=== PATIENT | male | born 1945 | race Caucasian/White ===

== ENCOUNTER 2016-09-27 20:06 | Inpatient (IN) | payer OTHER, MEDICARE ==
[~2016-09-27] VITALS: Ht 177.8 cm; Wt 79.7 kg
[2016-09-27 20:08] VITALS: BP 87/48; PULSE 77; RESP 16; TEMP 97.7; O2SAT 98
[2016-09-27 20:28] VITALS: BP 85/48; PULSE 68; RESP 20; TEMP 97.9
[2016-09-27 20:30] VITALS: BP 87/48; PULSE 77; RESP 16; TEMP 97.7; O2SAT 98
[2016-09-27] MEDS ORDERED: FISHCAP4 PO (20:40)
[2016-09-27] MEDS ORDERED: CALC500T35 (20:40)
[2016-09-27] MEDS ORDERED: ASCOPOW5 (20:40)
[2016-09-27] MEDS ORDERED: MULT1CHW70 (20:40)
[2016-09-27] MEDS ORDERED: PRAV40TA2 PO (20:40)
[2016-09-27] MEDS ORDERED: VITA400C28 (20:40)
[2016-09-27] MEDS ORDERED: ATEN100T PO (20:40)
[2016-09-27] MEDS ORDERED: M2 M100C (20:40)
[2016-09-27] MEDS ORDERED: ASPI81CH CHEW (20:40)
[2016-09-27] MEDS ORDERED: FERR325T PO (20:40)
[2016-09-27] MEDS ORDERED: VITACAP7 PO (20:40)
[2016-09-27] MEDS ORDERED: LEVO150T7 PO (20:40)
[2016-09-27] MEDS ORDERED: HYDR10TA23 PO (20:40)
[2016-09-27] MEDS ORDERED: SODIUM CHLOR 0.9% 1000 ML INJ 1,000 ML IV ONE (21:01)
--- NOTE | 2016-09-27 21:06 | PD ---
HPI Chief Complaint: Syncope/Near-Syncope Time Seen by Provider: 21:05 Travel History International Travel<30 days: No Contact w/Intl Traveler<30days: No Traveled to known affect area: No History of Present Illness HPI Patient complaining of dizziness causing the fall on his buttocks 3 episodes that began last night. Patient states he began having loose stools yesterday as well as some today and becoming dizzy after standing for long periods of time. Patient denies any loss of consciousness, head injury, or other change in bowel or bladder. Patient denies any chest pain, shortness of breath, abdominal pain, numbness or tingling anywhere, or headaches. Patient does report he had associated cold sweats with this but denies any known fever. Patient reports he's had dark stools over the past year which has not changed. Patient reports occasionally that when wiping it is some bright red blood on the toilet paper, but associated this with possible hemorrhoids. PFSH Past Medical History AAA: Yes Atrial Fibrillation: Yes Cardiovascular Problems: Yes (AAA) Hypertension: Yes Past Surgical History Abdominal Aneurysm Repair: Yes Cholecystectomy: Yes Tonsillectomy: Yes Other Surgery: Yes (INTESTINAL REPAIR, GROIN ANEURSYM ) Social History Alcohol Use: No Tobacco Use: No Substance Use: No Allergies-Medications (Allergen,Severity, Reaction): Coded Allergies: Codeine (Verified Allergy, Unknown, 09/27/16) Spiriva (Verified Allergy, Unknown, 09/27/16) Reported Meds & Prescriptions Reported Meds & Active Scripts Active Reported Ascorbic Acid (Ascorbic Acid (Bulk)) 1 Pow Pow Calcium (Oyster Shell) 500 Mg Tab 500 Magnesium 100 Mg Cap Vitamin D (Cholecalciferol) 400 Unit Cap B Complex (B-Complex Vitamins) 1 Cap 1 Cap PO DAILY Fish Oil + D3 (Fish Oil-Cholecalciferol) 1,200-1,000 Mg-Unit Cap 1 Cap PO DAILY Multivitamin Adult (Multiple Vitamins W/ Minerals) 1 Chw Chw Hydralazine (Hydralazine HCl) 10 Mg Tab 12.5 Mg PO DAILY Take with a meal Pravastatin 40 Mg Tab 40 Mg PO DAILY Levothyroxine (Levothyroxine Sodium) 150 Mcg Tab 150 Mcg PO DAILY Atenolol 100 Mg Tab 100 Mg PO BID Ferrous Sulfate 325 Mg Tab 500 Mg PO BID Aspirin 81 Mg Chew 81 Mg CHEW DAILY Review of Systems Except as stated in HPI: all other systems reviewed are Neg Physical Exam Narrative GENERAL: Well-developed, well nourished, in no acute distress, and non-ill appearing. SKIN: Warm and dry. HEAD: Atraumatic. Normocephalic. EYES: Pupils equal and round. EOMI. No scleral icterus. No injection or drainage. ENT: No nasal bleeding or discharge. Mucous membranes pink and moist. NECK: Trachea midline. No JVD. Supple. No nuclear rigidity. CARDIOVASCULAR: Regular rate and rhythm. No murmur appreciated. RESPIRATORY: No accessory muscle use. No respiratory distress. Clear to auscultation. Breath sounds equal bilaterally. GASTROINTESTINAL: Abdomen soft, non-tender, nondistended. Hepatic and splenic margins not palpable. Normal bowel sounds 4. No pulsatile mass. MUSCULOSKELETAL: No obvious deformities. No clubbing. No cyanosis. No edema. Full range of motion. NEUROLOGICAL: Awake and alert. No obvious cranial nerve deficits. Motor grossly within normal limits. Normal speech. PSYCHIATRIC: Appropriate mood and affect; insight and judgment normal. Data Data Last Documented VS Vital Signs Date Time Temp Pulse Resp B/P Pulse Ox O2 Delivery O2 Flow Rate FiO2 09/27/16 22:43 70 14 93/50 100 Room Air 09/27/16 20:30 97.7 Orders Electrocardiogram (09/27/16 21:01) Complete Blood Count With Diff (09/27/16 21:01) Comprehensive Metabolic Panel (09/27/16 21:01) Magnesium (Mg) (09/27/16 21:01) Ckmb (Isoenzyme) Profile (09/27/16 21:01) Troponin I (09/27/16 21:01) Act Partial Throm Time (Ptt) (09/27/16 21:01) Prothrombin Time / Inr (Pt) (09/27/16 21:01) Urinalysis - C+S If Indicated (09/27/16 21:01) Chest, Single Ap (09/27/16 21:01) Ecg Monitoring (09/27/16 21:01) Iv Access Insert/Monitor (09/27/16 21:01) Oximetry (09/27/16 21:01) Sodium Chloride 0.9% Flush (Ns Flush) (09/27/16 21:15) Sodium Chlor 0.9% 1000 Ml Inj (Ns 1000 M (09/27/16 21:01) Orthostatic Vital Signs (09/27/16 21:01) Influenzae A/B Antigen (09/27/16 21:01) Type And Screen (09/27/16 21:58) Red Blood Cells (Rbc) (09/27/16 21:58) Pantoprazole Inj (Protonix Inj) (09/27/16 22:30) Pantoprazole Inj (Protonix Inj) (09/27/16 22:30) Admit Order (Ed Use Only) (09/27/16 22:44) Labs Laboratory Tests Test 09/27/16 09/27/16 09/27/16 21:15 21:45 22:04 White Blood Count 10.1 TH/MM3 Red Blood Count 1.78 MIL/MM3 Hemoglobin 5.7 GM/DL Hematocrit 16.9 % Mean Corpuscular Volume 94.9 FL Mean Corpuscular Hemoglobin 32.2 PG Mean Corpuscular Hemoglobin 34.0 % Concent Red Cell Distribution Width 13.5 % Platelet Count 117 TH/MM3 Mean Platelet Volume 8.4 FL Neutrophils (%) (Auto) 77.4 % Lymphocytes (%) (Auto) 13.8 % Monocytes (%) (Auto) 8.3 % Eosinophils (%) (Auto) 0.2 % Basophils (%) (Auto) 0.3 % Neutrophils # (Auto) 7.8 TH/MM3 Lymphocytes # (Auto) 1.4 TH/MM3 Monocytes # (Auto) 0.8 TH/MM3 Eosinophils # (Auto) 0.0 TH/MM3 Basophils # (Auto) 0.0 TH/MM3 CBC Comment DIFF FINAL Differential Comment Prothrombin Time 11.0 SEC Prothromb Time International 1.0 RATIO Ratio Activated Partial 19.5 SEC Thromboplast Time Sodium Level 137 MEQ/L Potassium Level 4.2 MEQ/L Chloride Level 103 MEQ/L Carbon Dioxide Level 23.1 MEQ/L Anion Gap 11 MEQ/L Blood Urea Nitrogen 123 MG/DL Creatinine 1.82 MG/DL Estimat Glomerular Filtration 37 ML/MIN Rate Random Glucose 154 MG/DL Calcium Level 8.8 MG/DL Magnesium Level 2.0 MG/DL Total Bilirubin 0.2 MG/DL Aspartate Amino Transf 14 U/L (AST/SGOT) Alanine Aminotransferase 17 U/L (ALT/SGPT) Alkaline Phosphatase 29 U/L Total Creatine Kinase 100 U/L Troponin I LESS THAN 0.02 NG/ML Total Protein 5.1 GM/DL Albumin 2.8 GM/DL Urine Color YELLOW Urine Turbidity CLEAR Urine pH 5.0 Urine Specific [place] 1.017 Urine Protein NEG mg/dL Urine Glucose (UA) NEG mg/dL Urine Ketones NEG mg/dL Urine Occult Blood NEG Urine Nitrite NEG Urine Bilirubin NEG Urine Urobilinogen LESS THAN 2.0 MG/DL Urine Leukocyte Esterase NEG Urine WBC 1 /hpf Microscopic Urinalysis Comment CULT NOT INDICATED Blood Type B POSITIVE Antibody Screen NEGATIVE Crossmatch Leukocyte-Reduced Red Blood Cells Blood Bank Comment MDM Medical Decision Making Medical Screen Exam Complete: Yes Emergency Medical Condition: Yes Differential Diagnosis Arrhythmia, electrolyte abnormality, acute coronary syndrome, dehydration, influenza, other Narrative Course Patient seen and examined. Initial laboratory radiological studies were obtained and reviewed. Discussed patient with Dr. George, who saw and evaluated the patient and is in agreement with plan of care and disposition. Discussed all findings and plan of care with patient and his , who is agreeable for admission. Procedures Procedure Narrative Verbal consent was obtained. Digital rectal exam was performed. Stool specimen applied and test interpreted between 1 and 3 minutes of application and the result was positive. Internal Controls: Both positive and negative controls were validated. behavioral consultant was present during this exam. Physician Communication Physician Communication [id number] Olsen, who is agreeable to admit the patient. Diagnosis Primary Impression: GI bleed Qualified Code: K92.2 - Gastrointestinal hemorrhage, unspecified gastrointestinal hemorrhage type Additional Impressions: Severe anemia Acute renal insufficiency Abdoulaye Nieto Sep 27, 2016 21:06
[2016-09-27 21:14] VITALS: O2SAT 97
[2016-09-27] MEDS ORDERED: SODIUM CHLORIDE 0.9% FLUSH 5 ML FLUSH IVF PRN (21:15)
[2016-09-27 21:24] VITALS: BP_SYST 84; BP_SYST 86; BP_SYST 97; BP_DIAS 46; BP_DIAS 48; BP_DIAS 50; RESP 18; RESP 20
[2016-09-27 21:49] LABS: AUTOMATED NEUTROPHIL # 7.8 TH/MM3 (1.8-7.7); BASOPHIL % 0.3 % (0.0-2.0); EOSINOPHIL % 0.2 % (0.0-4.0); LYMPH % 13.8 % (9.0-44.0); LYMPHOCYTE # 1.4 TH/MM3 (1.0-4.8); MEAN CELL VOLUME 94.9 FL (80.0-100.0); MEAN CORPUSCULAR HEMOGLOBIN 32.2 PG (27.0-34.0); MONO % 8.3 % (0.0-8.0); NEUT % 77.4 % (16.0-70.0); PLATELET COUNT 117 TH/MM3 (150-450); RED BLOOD COUNT 1.78 MIL/MM3 (4.50-5.90); RED CELL DISTRIBUTION WIDTH 13.5 % (11.6-17.2); WHITE BLOOD COUNT 10.1 TH/MM3 (4.0-11.0)
[2016-09-27 21:50] LABS: HEMO FLAGS DIFF FINAL
--- NOTE | 2016-09-27 21:55 | RADRPT ---
EXAM DATE/TIME: 09/27/2016 21:20 [facility] COMPARISON: No previous studies available for comparison. INDICATIONS : Syncope MEDICAL HISTORY : None. SURGICAL HISTORY : None. ENCOUNTER: Initial ACUITY: 1 day PAIN SCORE: 0/10 LOCATION: Bilateral chest FINDINGS: A single view of the chest demonstrates the lungs to be symmetrically aerated without evidence of mas s, infiltrate or effusion. The cardiomediastinal contours are unremarkable. Osseous structures are intact. CONCLUSION: 1. No acute findings. Mildly tortuous aorta. Bhavin Castaneda MD on September 27, 2016 at 21:53 Board Certified Radiologist. This report was verified electronically.
[2016-09-27 21:58] LABS: ANION GAP 11 MEQ/L (5-15); AST (GOT) 14 U/L (15-37); BICARBONATE 23.1 MEQ/L (21.0-32.0); BLOOD UREA NITROGEN 123 MG/DL (7-18); CHLORIDE 103 MEQ/L (98-107); GLOMERULAR FILTRATION RATE 37 ML/MIN (>89); HEMATOCRIT 16.9 % (39.0-51.0); POTASSIUM 4.2 MEQ/L (3.5-5.1); SODIUM (NA) 137 MEQ/L (136-145)
[2016-09-27 21:59] LABS: APTT (PATIENT) 19.5 SEC (24.3-30.1)
[2016-09-27 22:03] LABS: ALKALINE PHOSPHATASE 29 U/L (45-117); ALT (GPT) 17 U/L (12-78); TOTAL BILIRUBIN ADULT 0.2 MG/DL (0.2-1.0)
[2016-09-27 22:04] LABS: CREATINE KINASE 100 U/L (39-308)
[2016-09-27 22:20] LABS: BLOOD, URINE NEG (NEG); GLUCOSE,URINE NEG (NEG); KETONE, URINE NEG (NEG); NITRITE,URINE NEG (NEG); URINE COLOR YELLOW (YELLW/STRAW)
[2016-09-27 22:25] LABS: COMMENT (UR) CULT NOT INDICATED; CULTURE IF INDICATED CULT NOT INDICATED
--- NOTE | 2016-09-27 22:26 | PD ---
Physical Exam Narrative General: The patient is a well-developed well-nourished male, slightly pale appearing, in no acute distress. Head and Neck exam: Head is normocephalic atraumatic. Eyes: Pupils are equal round and reactive to light. Nose: Midline septum with pink mucous membranes Mouth: Dentition unremarkable. Moist mucus membranes. Posterior oropharynx is not erythematous. No tonsillar hypertrophy. Uvula midline. Airway patent. Neck: No palpable lymphadenopathy. No nuchal rigidity. No thyromegaly. Cardiovascular: Regular rate and rhythm without murmurs, gallops, or rubs. No pulse deficit to the extremities and simultaneous auscultation and palpation of his radial artery. Lungs: Clear to auscultation bilaterally. No wheezes, rhonchi, or rales. Abdomen: Soft, without tenderness to palpation in all 4 quadrants of the abdomen. No guarding, rebound, or rigidity. Normal bowel sounds are audible. No tenderness on palpation of McBurney's point. Extremities: No clubbing, cyanosis, or edema. 2+ pulses in all 4 extremities. Neurologic Exam: Grossly nonfocal. Skin Exam: No rash noted. Intact skin that is warm and dry. Data Data Last Documented VS Vital Signs Date Time Temp Pulse Resp B/P Pulse Ox O2 Delivery O2 Flow Rate FiO2 09/27/16 22:43 70 14 93/50 100 Room Air 09/27/16 20:30 97.7 Orders Electrocardiogram (09/27/16 21:01) Complete Blood Count With Diff (09/27/16 21:01) Comprehensive Metabolic Panel (09/27/16 21:01) Magnesium (Mg) (09/27/16 21:01) Ckmb (Isoenzyme) Profile (09/27/16 21:01) Troponin I (09/27/16 21:01) Act Partial Throm Time (Ptt) (09/27/16 21:01) Prothrombin Time / Inr (Pt) (09/27/16 21:01) Urinalysis - C+S If Indicated (09/27/16 21:01) Chest, Single Ap (09/27/16 21:01) Ecg Monitoring (09/27/16 21:01) Iv Access Insert/Monitor (09/27/16 21:01) Oximetry (09/27/16 21:01) Sodium Chloride 0.9% Flush (Ns Flush) (09/27/16 21:15) Sodium Chlor 0.9% 1000 Ml Inj (Ns 1000 M (09/27/16 21:01) Orthostatic Vital Signs (09/27/16 21:01) Influenzae A/B Antigen (09/27/16 21:01) Type And Screen (09/27/16 21:58) Red Blood Cells (Rbc) (09/27/16 21:58) Pantoprazole Inj (Protonix Inj) (09/27/16 22:30) Pantoprazole Inj (Protonix Inj) (09/27/16 22:30) Admit Order (Ed Use Only) (09/27/16 22:44) Labs Laboratory Tests Test 09/27/16 09/27/16 09/27/16 21:15 21:45 22:04 White Blood Count 10.1 TH/MM3 Red Blood Count 1.78 MIL/MM3 Hemoglobin 5.7 GM/DL Hematocrit 16.9 % Mean Corpuscular Volume 94.9 FL Mean Corpuscular Hemoglobin 32.2 PG Mean Corpuscular Hemoglobin 34.0 % Concent Red Cell Distribution Width 13.5 % Platelet Count 117 TH/MM3 Mean Platelet Volume 8.4 FL Neutrophils (%) (Auto) 77.4 % Lymphocytes (%) (Auto) 13.8 % Monocytes (%) (Auto) 8.3 % Eosinophils (%) (Auto) 0.2 % Basophils (%) (Auto) 0.3 % Neutrophils # (Auto) 7.8 TH/MM3 Lymphocytes # (Auto) 1.4 TH/MM3 Monocytes # (Auto) 0.8 TH/MM3 Eosinophils # (Auto) 0.0 TH/MM3 Basophils # (Auto) 0.0 TH/MM3 CBC Comment DIFF FINAL Differential Comment Prothrombin Time 11.0 SEC Prothromb Time International 1.0 RATIO Ratio Activated Partial 19.5 SEC Thromboplast Time Sodium Level 137 MEQ/L Potassium Level 4.2 MEQ/L Chloride Level 103 MEQ/L Carbon Dioxide Level 23.1 MEQ/L Anion Gap 11 MEQ/L Blood Urea Nitrogen 123 MG/DL Creatinine 1.82 MG/DL Estimat Glomerular Filtration 37 ML/MIN Rate Random Glucose 154 MG/DL Calcium Level 8.8 MG/DL Magnesium Level 2.0 MG/DL Total Bilirubin 0.2 MG/DL Aspartate Amino Transf 14 U/L (AST/SGOT) Alanine Aminotransferase 17 U/L (ALT/SGPT) Alkaline Phosphatase 29 U/L Total Creatine Kinase 100 U/L Troponin I LESS THAN 0.02 NG/ML Total Protein 5.1 GM/DL Albumin 2.8 GM/DL Urine Color YELLOW Urine Turbidity CLEAR Urine pH 5.0 Urine Specific [place] 1.017 Urine Protein NEG mg/dL Urine Glucose (UA) NEG mg/dL Urine Ketones NEG mg/dL Urine Occult Blood NEG Urine Nitrite NEG Urine Bilirubin NEG Urine Urobilinogen LESS THAN 2.0 MG/DL Urine Leukocyte Esterase NEG Urine WBC 1 /hpf Microscopic Urinalysis Comment CULT NOT INDICATED Blood Type B POSITIVE Antibody Screen NEGATIVE Crossmatch Leukocyte-Reduced Red Blood Cells Blood Bank Comment MDM Medical Record Reviewed: Yes Supervised Visit with TAMIKO: Yes Interpretation(s) Last Impressions Chest X-Ray 09/27/162100 Signed Impressions: Service Date/Time: Tuesday, September 27, 2016 21:20 - CONCLUSION: 1. No acute findings. Mildly tortuous aorta. Bhavin Castaneda MD Narrative Course I, Dr. George, have reviewed the advance practice practitioner's documentation and am in agreement, met with the patient face to face, made the diagnosis, and the medical decision making was done by me. The patient was initially evaluated by Abdoulaye. Please see his complete history and physical. *My assessment and Findings: The patient is a 71-year-old male who presents to [facility] emergency Department with a history of near syncope 3 associated with generalized weakness. The patient reports that he does have a history of dark stools over the last year. The patient reports of long- standing history of abdominal issues. He reports that in 2007 he had a 7 cm aneurysm surgically repaired. He reports that he has also had a kidney stone removed, gallbladder stone with stent placed and then cholecystectomy, and history of a bowel obstruction with reported hole in his small intestine that was repaired. The patient denies having any abdominal pain. He reports that he felt weak and nearly passed out, falling to the ground 3 times. He reports that he is visiting from [place]. The patient's examination is remarkable for a blood pressure of 93/50. Otherwise patient has no acute findings on his exam. Laboratory studies were ordered. Imaging studies were ordered. The patient's laboratory studies were remarkable for an elevated BUN elevation of 123, creatinine 1.82. The extreme elevation of the BUN in comparison to the creatinine is likely related to a GI bleed as the patient's hemoglobin is 5.7, hematocrit 16.9. The patient had Hemoccult positive stools. The patient's platelets are 117, cardiac enzymes are within normal limits. PT 11, INR 1.0, PTT 19.5. Urinalysis is unremarkable. Chest x-ray shows no acute findings, mildly torturous aorta. CT scan of the abdomen and pelvis is also been ordered. The patient's CT scan of the abdomen and pelvis shows severe sigmoid colon diverticulosis without diverticulitis, severe atherosclerotic plaque of the aorta branch vessels and also the iliac M visualize femoral vessels. 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 Left renal cyst and a 2 mm nonobstructing stone at the lower pole, prominent left extrarenal pelvis, small intrahepatic biliary gas, nonspecific but presumably related to prior sphincterotomy, patient has also had a cholecystectomy. The patients results were discussed with the patient, including the plan of care. I explained that further testing and/ or monitoring is indicated based on the patients history, examination, and/ or laboratory findings. Therefore, I recommended admission for additional evaluation. The patient expressed understanding and was agreeable with this plan. The patient was admitted to the hospital in guarded condition and sent to a bed under the care of the [facility] a Behavioral Hospitalist service. Physician Communication Physician Communication The patient's case is discussed with Dr. Olsen who did agree to admit the patient for further evaluation and treatment at this time. Diagnosis Primary Impression: GI bleed Qualified Code: K92.2 - Gastrointestinal hemorrhage, unspecified gastrointestinal hemorrhage type Additional Impressions: Severe anemia Acute renal insufficiency Admitting Information Admitting Physician Requests: it Kamille George MD Sep 27, 2016 22:26
[2016-09-27] MEDS ORDERED: PANTOPRAZOLE INJ 80 MG in SODIUM CHLORIDE 0.9% INJ 35 ML IV ONE (22:30)
[2016-09-27 22:43] VITALS: BP 93/50; PULSE 70; RESP 14; O2SAT 100
[2016-09-27] MEDS: PANTOPRAZOLE INJ 80 MG in SODIUM CHLORIDE 0.9% INJ 100 ML IV SCH (22:45)
[2016-09-27] MEDS ORDERED: SODIUM CHLORIDE 0.9% FLUSH 5 ML FLUSH FLUSH PRN (23:15)
[2016-09-27] MEDS ORDERED: NALOXONE HCL 0.4 MG/ML AMP IV PRN (23:15)
[2016-09-28] VITALS (17 sets, daily range): BP systolic 80–111; BP diastolic 44–63; PULSE 62–71; RESP 16–19; TEMP 96.1–98.6; O2SAT 98–100
--- NOTE | 2016-09-28 00:25 | RADRPT ---
EXAM DATE/TIME: 09/27/2016 23:39 [facility] COMPARISON: No previous studies available for comparison. INDICATIONS : Blood in stool with diarrhea. ORAL CONTRAST: No oral contrast ingested. RADIATION DOSE: 6.94 CTDIvol (mGy) MEDICAL HISTORY : Hypertension. a-fib SURGICAL HISTORY : Cholecystectomy. Abdominal aortic aneurysm repair.intestinal repair. ENCOUNTER: Initial ACUITY: 1 day PAIN SCALE: 0/10 LOCATION: abdomen TECHNIQUE: Volumetric scanning of the abdomen and pelvis was performed. Using automated exposure control and ad justment of the mA and/or kV according to patient size, radiation dose was kept as low as reasonably achievable to obtain optimal diagnostic quality images. FINDINGS: LOWER LUNGS: The visualized lower lungs are clear. LIVER: Homogeneous density without lesion. There is no dilation of the biliary tree. Small gas seen in the left intrahepatic ducts. Prior cholecystectomy. SPLEEN: Normal size without lesion. PANCREAS: Within normal limits. KIDNEYS: Cortical thinning seen medially of the upper pole to mid zone of the right kidney. There is a 2 mm no nobstructing stone in the left lower pole. There is a 2.3 cm and a 1.6 cm cyst of the left mid zone. No ureteral calculus demonstrated on either side. Prominent extrarenal pelvis on the left without fra nk hydronephrosis. ADRENAL GLANDS: Within normal limits. VASCULAR: There is severe atherosclerotic plaque of the abdominal aorta, mesenteric vessels, iliac arteries and visualized femoral arteries. Apparent aortobifem bypass. Markedly aneurysmal right internal iliac ar viry measuring about 3.4 cm noted. 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 Since there is an aortobifem bypass, I'm not sure how much flow is within the internal iliac arteries on th shay noncontrast images. BOWEL/MESENTERY: There is florid sigmoid colon diverticulosis without evidence of acute inflammatory changes. Nonobstr uctive bowel gas pattern. ABDOMINAL WALL: Within normal limits. RETROPERITONEUM: There is no lymphadenopathy. BLADDER: No wall thickening or mass. REPRODUCTIVE: Within normal limits. INGUINAL: There is no lymphadenopathy or hernia. MUSCULOSKELETAL: No acute bony abnormality demonstrated. CONCLUSION: 1. Severe sigmoid colon diverticulosis without diverticulitis. 2. Severe atherosclerotic plaque of the aorta and branch vessels and also the iliac and visualized fe moral vessels. Previous aortobifem bypass. 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 Please see above. 3. Left renal cysts and a 2 mm nonobstructing stone of the lower pole. Prominent left extrarenal pelv is. 4. Small intrahepatic biliary gas, nonspecific but presumably related to prior sphincterotomy. Patien t has had cholecystectomy. Venu Motta MD on September 28, 2016 at 0:16 Board Certified Radiologist. This report was verified electronically.
--- NOTE | 2016-09-28 01:34 | HHI.HP ---
[facility] Service [place] Hospitalists Primary Care Physician Non-Staff Admission Diagnosis GI bleed, severe anemia, acute renal insufficiency Diagnoses: Chief Complaint: Dizziness, fell down Travel History International Travel<30 Days: No Contact w/Intl Traveler <30 Da: No Traveled to Known Affected Are: No History of Present Illness History from patient, ER physician communication, and review of medical records. Patient reported that he was just extremely dizzy at home and was having trouble walking going to the bathroom. Stated his had to help him. He reports that he finally lost balance and fell down today. However denies hitting his head. Denies loss of consciousness. His only complaint is that of dizziness. Patient and was at the bedside stated that this has been going on for about 2 days. Also reports of black color stools. Denies any vomiting blood. Denies any blood in his urine. Patient denies any chest pain/palpitations/shortness of breath. He did however later stated that he thinks his A. fib was acting up and he felt some symptoms. He denies any nausea/vomiting/diarrhea/urinary burning or pain on urination. Denies any focal weakness. In the emergency room, patient's workup revealed critical anemia. Review of Systems Other 12 point review of system is done and negative apart from what is mentioned in HPI Past Family Social History Past Medical History Hypertension Hyperlipidemia Atrial fibrillation COPD Hypothyroidism Abdominal aortic aneurysm repair Past Surgical History AAA repair Allergies: Coded Allergies: Codeine (Verified Allergy, Unknown, 09/27/16) Spiriva (Verified Allergy, Unknown, 09/27/16) Family History Denies smoking/alcohol abuse/drug abuse. Social History Denies smoking. Stated quit many years ago. denies any alcohol abuse or drug abuse. Lives with his . Still driving. Physical Exam Vital Signs Vital Signs Date Time Temp Pulse Resp B/P Pulse Ox O2 Delivery O2 Flow Rate FiO2 09/28/16 00:48 97.9 68 16 82/52 100 Room Air 09/27/16 22:43 70 14 93/50 100 Room Air 09/27/16 21:24 67 18 84/50 71 18 86/48 77 20 97/46 09/27/16 21:14 97 Room Air 09/27/16 20:30 97.7 77 16 87/48 98 Room Air 09/27/16 20:28 97.9 68 20 85/48 09/27/16 20:08 97.7 77 16 87/48 98 Room Air Physical Exam GENERAL: This is a well-nourished, well-developed patient, in no apparent distress. SKIN: No rashes, ecchymoses or lesions. Cool and dry. HEAD: Atraumatic. Normocephalic. No temporal or scalp tenderness. EYES: Pupils equal round and reactive.o injection or drainage. ENT: Nose without bleeding, purulent drainage or septal hematoma.Airway patent. NECK: Trachea midline. No JVD . Supple, nontender, no meningeal signs. CARDIOVASCULAR: Regular rate and rhythm without murmurs, gallops, or rubs. RESPIRATORY: Clear to auscultation. Breath sounds equal bilaterally. No wheezes , rales, or rhonchi. GASTROINTESTINAL: Abdomen soft, non-tender, nondistended. No guarding. MUSCULOSKELETAL: Extremities without clubbing, cyanosis, or edema. NEUROLOGICAL: Awake and alert Motor and sensory grossly within normal limits. Normal speech. Laboratory Laboratory Tests Test 09/27/16 09/27/16 09/27/16 09/27/16 21:15 21:45 22:04 23:07 White Blood Count 10.1 Red Blood Count 1.78 Hemoglobin 5.7 Hematocrit 16.9 Mean Corpuscular Volume 94.9 Mean Corpuscular Hemoglobin 32.2 Mean Corpuscular Hemoglobin 34.0 Concent Red Cell Distribution Width 13.5 Platelet Count 117 Mean Platelet Volume 8.4 Neutrophils (%) (Auto) 77.4 Lymphocytes (%) (Auto) 13.8 Monocytes (%) (Auto) 8.3 Eosinophils (%) (Auto) 0.2 Basophils (%) (Auto) 0.3 Neutrophils # (Auto) 7.8 Lymphocytes # (Auto) 1.4 Monocytes # (Auto) 0.8 Eosinophils # (Auto) 0.0 Basophils # (Auto) 0.0 CBC Comment DIFF FINAL Differential Comment Prothrombin Time 11.0 Prothromb Time International 1.0 Ratio Activated Partial 19.5 Thromboplast Time Sodium Level 137 Potassium Level 4.2 Chloride Level 103 Carbon Dioxide Level 23.1 Anion Gap 11 Blood Urea Nitrogen 123 Creatinine 1.82 Estimat Glomerular Filtration 37 Rate Random Glucose 154 Calcium Level 8.8 Magnesium Level 2.0 Total Bilirubin 0.2 Aspartate Amino Transf 14 (AST/SGOT) Alanine Aminotransferase 17 (ALT/SGPT) Alkaline Phosphatase 29 Total Creatine Kinase 100 Troponin I LESS THAN 0.02 Total Protein 5.1 Albumin 2.8 Urine Color YELLOW Urine Turbidity CLEAR Urine pH 5.0 Urine Specific [place] 1.017 Urine Protein NEG Urine Glucose (UA) NEG Urine Ketones NEG Urine Occult Blood NEG Urine Nitrite NEG Urine Bilirubin NEG Urine Urobilinogen LESS THAN 2.0 Urine Leukocyte Esterase NEG Urine WBC 1 Microscopic Urinalysis Comment CULT NOT INDICATED Blood Type B POSITIVE Antibody Screen NEGATIVE Crossmatch Leukocyte-Reduced Leukocyte-Reduced Red Blood Red Blood Cells Cells Blood Bank Comment Test 09/27/16 23:23 Blood Type B POSITIVE Date/Time Procedure Status Source Growth 09/27/16 21:23 Influenza Types A,B Antigen (GREGORY) - Final Complete Nasal Washing NEGATIVE FOR FLU A AND B ANTIGEN.... Result Diagram: 09/27/16211409/27/162114 Imaging Last 48 hours Impressions Abdomen/Pelvis CT 09/27/162308 Signed Impressions: Service Date/Time: Tuesday, September 27, 2016 23:39 - CONCLUSION: 1. Severe sigmoid colon diverticulosis without diverticulitis. 2. Severe atherosclerotic plaque of the aorta and branch vessels and also the iliac and visualized femoral vessels. Previous aortobifem bypass. 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 Please see above. 3. Left renal cysts and a 2 mm nonobstructing stone of the lower pole. Prominent left extrarenal pelvis. 4. Small intrahepatic biliary gas, nonspecific but presumably related to prior sphincterotomy. Patient has had cholecystectomy. Venu Motta MD Chest X-Ray 09/27/162100 Signed Impressions: Service Date/Time: Tuesday, September 27, 2016 21:20 - CONCLUSION: 1. No acute findings. Mildly tortuous aorta. Bhavin Catsaneda MD Assessment and Plan Problem List: (1) GI bleed ICD Code: K92.2 Status: Acute (2) Severe anemia ICD Code: D64.9 Status: Acute (3) Acute renal insufficiency ICD Code: N28.9 Status: Acute Assessment and Plan Impression: GI bleeds Symptomatic anemia Acute blood loss anemia Near syncopesecondary to GI bleed Plan: Nothing by mouth. IV hydration. Transfuse 2 units of PRBC. Protonix IV drip. Hold blood thinners. Protonix IV drip. GI consult. Resume home meds apart from blood pressure medications. CT abdomen and pelvisreported noted. DVT prophylaxiswith SCD. GI prophylaxis on pantoprazole. Discussed Condition With patient, ER MD and ER nurse, Physician Certification 2 Midnight Certification Type: Admission for Inpatient Services Order for Inpatient Services The services are ordered in accordance with Medicare regulations or non- Medicare payer requirements, as applicable. In the case of services not specified as inpatient-only, they are appropriately provided as inpatient services in accordance with the 2-midnight benchmark. Estimated LOS (days): 3 days is the estimated time the patient will need to remain in the hospital, assuming treatment plan goals are met and no additional complications. Post-Hospital Plan: Home Problem Qualifiers (1) GI bleed: Qualified Code: K92.2 - Gastrointestinal hemorrhage, unspecified gastrointestinal hemorrhage type Vicente Olsen MD Sep 28, 2016 01:34
[2016-09-28] MEDS: LEVOTHYROXINE SODIUM 150 MCG TAB PO SCH (06:41)
--- NOTE | 2016-09-28 07:48 | PD.CONS ---
HPI History of Present Illness This is a 71 year old male patient who take a daily ASA for atrial fibrillation and came to the ER for evaluation of dizziness and frequent falling that began two days ago. He states that he has been having severe fatigue for several days and started having dizziness when he would go to stand or ambulate early yesterday morning. He got up to go to the bathroom and became dizzy and fell three times. He states that he did not actually pass out, but just fell. He does note that he has been having darker than normal stool for the past 6-7 months and that he has been having frequent indigestion for which he takes TUMS for. He denies any nausea, vomiting, abdominal pain, unexplained weight loss, or red blood in his stool. He is actually visiting from [place], [place]. He reports that he had a colonoscopy about 2 years ago and had a benign condition and was told "not to worry about it." He also had choledocholithiasis and underwent an ERCP with stent placement and later stent removal in June. He denies any hx of PUD and does not take aleve or ibuprofen. (Bryanna Chicas) PFSH Past Medical History Hypertension Hyperlipidemia Atrial fibrillation COPD Hypothyroidism Abdominal aortic aneurysm, s/p repair Cholelithiasis, Choledocholithiasis Small Bowel obstruction with perforation Past Surgical History AAA repair ERCP Colonoscopy Surgery for sb obstruction, small perforation Cholecystectomy (Bryanna Chicas) Coded Allergies: Codeine (Verified Allergy, Severe, Anaphylaxis, 09/28/16) Spiriva (Verified Allergy, Severe, Anaphylaxis, 09/28/16) Oxycodone (Verified Adverse Reaction, Severe, Nausea/Vomiting, 09/28/16) Medications Allergies Coded Allergies Type Severity Reaction Last Updated Verified Codeine Allergy Unknown 09/27/16 Yes Spiriva Allergy Unknown 09/27/16 Yes Active Scripts Medications Dose Route/Sig Days Date Category Dose Instructions Ascorbic Acid (Ascorbic Acid (Bulk)) 1 Pow Pow 09/27/16 Reported Calcium (Oyster Shell) 500 Mg Tab 500 09/27/16 Reported Magnesium 100 Mg Cap 09/27/16 Reported Vitamin D (Cholecalciferol) 400 Unit Cap 09/27/16 Reported B Complex (B-Complex Vitamins) 1 Cap 1 Cap PO DAILY 09/27/16 Reported Fish Oil + D3 (Fish Oil-Cholecalciferol) 1,200-1,000 Mg-Unit Cap 1 Cap PO DAILY 09/27/16 Reported Multivitamin Adult (Multiple Vitamins W/ Minerals) 1 Chw Chw 09/27/16 Reported Hydralazine (Hydralazine HCl) 10 Mg Tab 12.5 Mg PO DAILY 09/27/16 Reported Take with a meal Pravastatin 40 Mg Tab 40 Mg PO DAILY 09/27/16 Reported Levothyroxine (Levothyroxine Sodium) 150 Mcg Tab 150 Mcg PO DAILY 09/27/16 Reported Atenolol 100 Mg Tab 100 Mg PO BID 09/27/16 Reported Ferrous Sulfate 325 Mg Tab 500 Mg PO BID 09/27/16 Reported Aspirin 81 Mg Chew 81 Mg CHEW DAILY 09/27/16 Reported Family History Noncontributory Social History Denies smoking. Stated quit many years ago. denies any alcohol abuse or drug abuse. (Bryanna Chicas) Review of Systems Constitutional: COMPLAINS OF: Fatigue, Dizziness, DENIES: Weight loss, Change in appetite Respiratory: DENIES: Cough, Shortness of breath Cardiovascular: DENIES: Chest pain Gastrointestinal: COMPLAINS OF: Black stools, Diarrhea, Heartburn, DENIES: Abdominal pain, Bloody stools, Constipation, Nausea, Vomiting, Swelling of Abdomen, Hematemesis Integumentary: DENIES: Abnormal pigmentation Hematologic/lymphatic: DENIES: Bruising Neurologic: DENIES: Headache Psychiatric: DENIES: Confusion (Bryanna Chicas) GI Exam Vitals I&O Vital Signs Date Time Temp Pulse Resp B/P Pulse Ox O2 Delivery O2 Flow Rate FiO2 09/28/16 05:37 98.6 68 19 82/46 100 09/28/16 05:22 98.6 66 18 82/44 100 09/28/16 04:00 96.5 65 18 83/45 100 09/28/16 03:23 70 09/28/16 01:48 96.7 67 18 80/48 100 09/28/16 01:47 96.7 67 18 80/48 100 09/28/16 00:48 97.9 68 16 82/52 100 Room Air 09/27/16 22:43 70 14 93/50 100 Room Air 09/27/16 21:24 67 18 84/50 71 18 86/48 77 20 97/46 09/27/16 21:14 97 Room Air 1/30/17 20:30 97.7 77 16 87/48 98 Room Air 09/27/16 20:28 97.9 68 20 85/48 09/27/16 20:08 97.7 77 16 87/48 98 Room Air I/O 09/27/16 09/27/16 09/27/16 09/28/16 09/28/16 09/28/16 07:00 15:00 23:00 07:00 15:00 23:00 Intake Total 0 ml Balance 0 ml Intake Oral 0 ml Imaging Last Impressions Abdomen/Pelvis CT 09/27/169 Signed Impressions: Service Date/Time: Tuesday, September 27, 2016 23:39 - CONCLUSION: 1. Severe sigmoid colon diverticulosis without diverticulitis. 2. Severe atherosclerotic plaque of the aorta and branch vessels and also the iliac and visualized femoral vessels. Previous aortobifem bypass. 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 Please see above. 3. Left renal cysts and a 2 mm nonobstructing stone of the lower pole. Prominent left extrarenal pelvis. 4. Small intrahepatic biliary gas, nonspecific but presumably related to prior sphincterotomy. Patient has had cholecystectomy. Venu Motta MD Chest X-Ray 09/27/162100 Signed Impressions: Service Date/Time: Tuesday, September 27, 2016 21:20 - CONCLUSION: 1. No acute findings. Mildly tortuous aorta. Bhavin Castaneda MD Laboratory Test 09/27/16 09/27/16 09/27/16 09/27/16 21:15 21:45 22:04 23:07 White Blood Count 10.1 TH/MM3 Red Blood Count 1.78 MIL/MM3 Hemoglobin 5.7 GM/DL Hematocrit 16.9 % Mean Corpuscular Volume 94.9 FL Mean Corpuscular Hemoglobin 32.2 PG Mean Corpuscular Hemoglobin 34.0 % Concent Red Cell Distribution Width 13.5 % Platelet Count 117 TH/MM3 Mean Platelet Volume 8.4 FL Neutrophils (%) (Auto) 77.4 % Lymphocytes (%) (Auto) 13.8 % Monocytes (%) (Auto) 8.3 % Eosinophils (%) (Auto) 0.2 % Basophils (%) (Auto) 0.3 % Neutrophils # (Auto) 7.8 TH/MM3 Lymphocytes # (Auto) 1.4 TH/MM3 Monocytes # (Auto) 0.8 TH/MM3 Eosinophils # (Auto) 0.0 TH/MM3 Basophils # (Auto) 0.0 TH/MM3 CBC Comment DIFF FINAL Differential Comment Prothrombin Time 11.0 SEC Prothromb Time International 1.0 RATIO Ratio Activated Partial 19.5 SEC Thromboplast Time Sodium Level 137 MEQ/L Potassium Level 4.2 MEQ/L Chloride Level 103 MEQ/L Carbon Dioxide Level 23.1 MEQ/L Anion Gap 11 MEQ/L Blood Urea Nitrogen 123 MG/DL Creatinine 1.82 MG/DL Estimat Glomerular Filtration 37 ML/MIN Rate Random Glucose 154 MG/DL Calcium Level 8.8 MG/DL Magnesium Level 2.0 MG/DL Total Bilirubin 0.2 MG/DL Aspartate Amino Transf 14 U/L (AST/SGOT) Alanine Aminotransferase 17 U/L (ALT/SGPT) Alkaline Phosphatase 29 U/L Total Creatine Kinase 100 U/L Troponin I LESS THAN 0.02 NG/ML Total Protein 5.1 GM/DL Albumin 2.8 GM/DL Urine Color YELLOW Urine Turbidity CLEAR Urine pH 5.0 Urine Specific [place] 1.017 Urine Protein NEG mg/dL Urine Glucose (UA) NEG mg/dL Urine Ketones NEG mg/dL Urine Occult Blood NEG Urine Nitrite NEG Urine Bilirubin NEG Urine Urobilinogen LESS THAN 2.0 MG/DL Urine Leukocyte Esterase NEG Urine WBC 1 /hpf Microscopic Urinalysis Comment CULT NOT INDICATED Blood Type B POSITIVE Antibody Screen NEGATIVE Crossmatch Leukocyte-Reduced Leukocyte-Reduced Red Blood Red Blood Cells Cells Blood Bank Comment Test 09/27/16 23:23 Blood Type B POSITIVE Date/Time Procedure Status Source Growth 09/27/16 21:23 Influenza Types A,B Antigen (GREGORY) - Final Complete Nasal Washing NEGATIVE FOR FLU A AND B ANTIGEN.... Physical Examination HEENT: Normocephalic; atraumatic; no jaundice. Throat is clear. NECK: Neck is supple, no JVD, no lymphadenopathy. CHEST: CTA CARDIAC: Irregular ABDOMEN: Soft, nondistended, nontender; no hepatosplenomegaly; bowel sounds are present in all four quadrants. EXTREMITIES: No clubbing, cyanosis, or edema. SKIN: Normal; no rash; no jaundice. [employer]ING [employer] WORK[employer]: No focal deficits; alert and oriented times three. (Bryanna Chicas) Assessment and Plan Plan ASSESSMENT: - Upper GIB, Melena. Pt reports darker than normal stools x 6-7 months with sudden dizziness/fatigue 2 days ago. HH 5.7/16.9. Getting transfused. No hx of PUD. Colonoscopy 2 years ago. ERCP with stent removal in June- Pt visiting from [place], [place]. NPO. Protonix Gtt. - Anemia, acute blood loss. HH 5.7/16.9. S/P 2 units of PRBC. - SHIMA, Creat. 1.82. IVF - Atrial fibrillation (on asa), hypothyroidism, hyperlipidemia, per primary PLAN: - Plan for egd today - Obtain consent - NPO - Protonix Gtt - Monitor HH - Transfuse as necessary - Supportive care - Further recommendations to follow based on results of above - Pt seen and examined by Dr. Carlson and myself and this note is written on his behalf (Bryanna Chicas) Physician Comments Patient seen and examined Agree with above Continue with current supportive care Monitor labs EGD today further recommendations shall follow EGD (Lenin Carlson MD) Bryanna Chicas Sep 28, 2016 07:48 Lenin Carlson MD Sep 28, 2016 23:13
[2016-09-28] MEDS: FERROUS SULFATE 325 MG (65 MG ELEMENTAL IRON) TAB PO SCH ×2 (08:43→22:13)
[2016-09-28] MEDS: PRAVASTATIN SOD 40 MG TAB PO SCH (08:43)
[2016-09-28] MEDS: SODIUM CHLORIDE 0.9% FLUSH 5 ML FLUSH FLUSH SCH ×2 (08:44→22:13)
[2016-09-28] MEDS ORDERED: hydrALAZINE HCL 25 MG TAB PO SCH (09:00)
[2016-09-28] MEDS ORDERED: ATENOLOL 100 MG TAB PO SCH (09:00)
[2016-09-28] MEDS: PANTOPRAZOLE INJ 80 MG in SODIUM CHLORIDE 0.9% INJ 100 ML IV SCH (10:37)
[2016-09-28] MEDS: ATENOLOL 50 MG TAB PO SCH ×2 (13:00→22:13)
[2016-09-28 14:05] LABS: AUTOMATED NEUTROPHIL # 4.7 TH/MM3 (1.8-7.7); BASOPHIL % 0.3 % (0.0-2.0); EOSINOPHIL # 0.1 TH/MM3 (0-0.4); EOSINOPHIL % 0.9 % (0.0-4.0); HEMATOCRIT 22.7 % (39.0-51.0); LYMPH % 21.6 % (9.0-44.0); LYMPHOCYTE # 1.5 TH/MM3 (1.0-4.8); MEAN CELL VOLUME 88.2 FL (80.0-100.0); MEAN CORPUSCULAR HEMOGLOBIN 30.7 PG (27.0-34.0); MEAN CORPUSCULAR HGB CONC 34.8 % (32.0-36.0); NEUT % 66.2 % (16.0-70.0); PLATELET COUNT 82 TH/MM3 (150-450); RED BLOOD COUNT 2.57 MIL/MM3 (4.50-5.90); RED CELL DISTRIBUTION WIDTH 16.8 % (11.6-17.2); WHITE BLOOD COUNT 7.1 TH/MM3 (4.0-11.0)
[2016-09-28 14:09] LABS: HEMO FLAGS AUTO DIFF
[2016-09-28 14:33] LABS: BICARBONATE 27.1 MEQ/L (21.0-32.0)
[2016-09-28 14:37] LABS: PLATELET ESTIMATE SMEAR LOW (NORMAL); PLATELET MORPHOLOGY NORMAL (NORMAL); SCAN/DIFF AUTO DIFF CONFIRMED
[2016-09-28] MEDS ORDERED: PROPOFOL 200 MG/20 ML AMP IV ONE (14:45)
--- NOTE | 2016-09-28 15:03 | PD.PROCEDR ---
GI Procedure REFERRING PHYSICIAN [place] PROCEDURE PERFORMED EGD with biopsy INDICATION FOR PROCEDURE Melena and anemia PROCEDURE: The procedure, risks and benefits were discussed with Mr. Brennan and informed consent was obtained. Anesthesia sedated him with Diprivan. He was placed in the left lateral decubitus position. EGD: The Pentax videoscope was introduced through the oropharynx and advanced to the second portion of the duodenum under direct visualization. Retroflexion was performed in the stomach. FINDINGS: The esophagus this was unremarkable except for an irregular Z line and this was biopsied The stomach there was patchy erythema in the antrum but no ulcerations or erosions the rest of the mucosa in the stomach was unremarkable antral biopsies were taken for further evaluation The duodenum there was patchy erythema with nodularity and superficial erosions noted in the duodenal bulb this was biopsied no ulcerations no active bleeding seen the second portion was unremarkable ESTIMATED BLOOD LOSS: None SPECIMENS REMOVED: Esophageal gastric and duodenal COMPLICATIONS: None IMPRESSION: Irregular Z line Gastritis Erosive duodenitis PLAN: Await biopsy PPI Avoid NSAIDs and aspirin Monitor labs Transfuse as needed Follow-up with GI post discharge Supportive care Lenin Carlson MD Sep 28, 2016 15:03
[2016-09-28 18:32] LABS: HEMATOCRIT 23.9 % (39.0-51.0)
[2016-09-28 18:35] LABS: REVIEW FLAG FINAL
[2016-09-28] MEDS: SODIUM CHLOR 0.9% 1000 ML INJ 1,000 ML IV SCH (23:59)
[2016-09-29] VITALS (9 sets, daily range): BP systolic 100–127; BP diastolic 56–67; PULSE 57–68; RESP 16–18; TEMP 96.1–97.7; O2SAT 95–99
[2016-09-29 00:34] LABS: HEMATOCRIT 21.8 % (39.0-51.0)
[2016-09-29 00:37] LABS: REVIEW FLAG FINAL
[2016-09-29 00:42] LABS: FERRITIN 539 NG/ML (26-388); TRANSFERRIN IRON PROFILE 162 MG/DL (200-360)
[2016-09-29] MEDS: LEVOTHYROXINE SODIUM 150 MCG TAB PO SCH (05:41)
[2016-09-29 08:38] LABS: AUTOMATED NEUTROPHIL # 4.5 TH/MM3 (1.8-7.7); BASOPHIL % 0.3 % (0.0-2.0); EOSINOPHIL # 0.2 TH/MM3 (0-0.4); EOSINOPHIL % 2.4 % (0.0-4.0); LYMPH % 16.3 % (9.0-44.0); MEAN CORPUSCULAR HEMOGLOBIN 30.1 PG (27.0-34.0); MEAN CORPUSCULAR HGB CONC 33.8 % (32.0-36.0); MONO % 9.3 % (0.0-8.0); NEUT % 71.7 % (16.0-70.0); PLATELET COUNT 90 TH/MM3 (150-450); RED BLOOD COUNT 2.58 MIL/MM3 (4.50-5.90); RED CELL DISTRIBUTION WIDTH 17.2 % (11.6-17.2); WHITE BLOOD COUNT 6.3 TH/MM3 (4.0-11.0)
[2016-09-29 08:49] LABS: HEMO FLAGS AUTO DIFF
[2016-09-29 08:55] LABS: ALKALINE PHOSPHATASE 28 U/L (45-117); ALT (GPT) 17 U/L (12-78); ANION GAP 7 MEQ/L (5-15); AST (GOT) 11 U/L (15-37); BICARBONATE 26.4 MEQ/L (21.0-32.0); BLOOD UREA NITROGEN 70 MG/DL (7-18); CHLORIDE 111 MEQ/L (98-107); GLOMERULAR FILTRATION RATE 42 ML/MIN (>89); LDH SERUM 117 U/L (87-241); POTASSIUM 3.7 MEQ/L (3.5-5.1); SODIUM (NA) 144 MEQ/L (136-145); TOTAL BILIRUBIN ADULT 0.3 MG/DL (0.2-1.0)
[2016-09-29] MEDS: PANTOPRAZOLE SOD 40 MG DELAYED RELEASE TAB PO SCH (08:55)
[2016-09-29] MEDS: ATENOLOL 50 MG TAB PO SCH ×2 (08:55→21:45)
[2016-09-29] MEDS: FERROUS SULFATE 325 MG (65 MG ELEMENTAL IRON) TAB PO SCH (08:55)
[2016-09-29] MEDS: SODIUM CHLORIDE 0.9% FLUSH 5 ML FLUSH FLUSH SCH ×2 (08:55→21:00)
[2016-09-29] MEDS: PRAVASTATIN SOD 40 MG TAB PO SCH (08:55)
[2016-09-29] MEDS: SODIUM CHLOR 0.9% 1000 ML INJ 1,000 ML IV SCH ×2 (08:56→19:08)
[2016-09-29 09:39] LABS: SCAN/DIFF AUTO DIFF CONFIRMED
[2016-09-29 09:40] LABS: PLATELET ESTIMATE SMEAR LOW (NORMAL); PLATELET MORPHOLOGY NORMAL (NORMAL)
--- NOTE | 2016-09-29 11:12 | HHI.PR ---
Subjective Remarks Resting in bed comfortably No nausea or vomiting No chest pain or short of breath or lightheadedness or dizziness Patient denied history of coronary artery disease Hemoglobin 10.8 today I discussed with the nurse, will monitor H&H and transfuse if less than 7 Status post EGD showing gastritis and change in Z line Objective Vitals Vital Signs Date Time Temp Pulse Resp B/P Pulse Ox O2 Delivery O2 Flow Rate FiO2 09/29/16 09:33 57 09/29/16 08:00 97.5 60 16 127/66 96 09/29/16 04:25 97.7 62 18 116/67 96 09/29/16 00:09 97.5 65 18 111/63 95 09/28/16 20:32 97.6 68 18 102/56 99 09/28/16 20:00 69 09/28/16 16:00 96.1 63 18 111/63 100 09/28/16 15:06 66 16 106/70 98 09/28/16 15:01 73 16 102/59 95 09/28/16 14:56 98.4 72 16 101/54 98 09/28/16 13:57 97.2 70 16 91/51 98 09/28/16 12:50 97.8 70 18 102/53 09/28/16 12:00 97.8 71 18 106/55 98 I/O 09/28/16 09/28/16 09/28/16 09/29/16 09/29/16 09/29/16 07:00 15:00 23:00 07:00 15:00 23:00 Intake Total 0 ml 1080 ml 700 ml Output Total 650 ml Balance 0 ml 1080 ml 50 ml Intake Oral 0 ml 480 ml IV Total 600 ml 700 ml Output Urine Total 650 ml # Voids 3 # Bowel Movements 0 Result Diagram: 09/29/16 0754 09/29/16 0754 Imaging Last Impressions Abdomen/Pelvis CT 09/27/16 1560 Signed Impressions: Service Date/Time: Tuesday, September 27, 2016 23:39 - CONCLUSION: 1. Severe sigmoid colon diverticulosis without diverticulitis. 2. Severe atherosclerotic plaque of the aorta and branch vessels and also the iliac and visualized femoral vessels. Previous aortobifem bypass. 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 Please see above. 3. Left renal cysts and a 2 mm nonobstructing stone of the lower pole. Prominent left extrarenal pelvis. 4. Small intrahepatic biliary gas, nonspecific but presumably related to prior sphincterotomy. Patient has had cholecystectomy. Venu Motta MD Chest X-Ray 09/27/162100 Signed Impressions: Service Date/Time: Tuesday, September 27, 2016 21:20 - CONCLUSION: 1. No acute findings. Mildly tortuous aorta. Bhavin Castaneda MD Objective Remarks GENERAL: This is a well-nourished, well-developed patient, in no apparent distress. SKIN: No rashes, warm and dry HEAD: Atraumatic. Normocephalic. EYES: Pupils equal round and reactive. Extraocular motions intact. No scleral icterus. ENT: Nose without bleeding, or drainage, Airway patent. NECK: Trachea midline. Supple CARDIOVASCULAR: Regular rate and rhythm without murmurs, gallops, or rubs. RESPIRATORY: Fair air entry bilaterally. No wheezes, rales, or rhonchi. GASTROINTESTINAL: Abdomen soft, non-tender, nondistended. Positive bowel sounds MUSCULOSKELETAL: Extremities without clubbing, cyanosis, or edema. Pedal pulses appreciated NEUROLOGICAL: Awake and alert. Moves all extremity. Normal speech.no focal neurological deficit Procedures EGD A/P Problem List: (1) GI bleed ICD Code: K92.2 Status: Acute (2) Severe anemia ICD Code: D64.9 Status: Acute (3) Acute renal insufficiency ICD Code: N28.9 Status: Acute Assessment and Plan Upper GI bleeds Symptomatic anemia with near syncope Acute blood loss anemia History of A. fib on aspirin Increased iron indices >> stop ferrous sulfate Hyperlipidemia Hypothyroidism DVT prophylaxis with SCD only due to GI bleed Plan: Nothing by mouth. IV hydration. Transfuse 2 units of PRBC. Hold blood thinners. Protonix IV drip. GI consult appreciated status post EGD >> Irregular Z line, Gastritis, Erosive duodenitis Continue PPI, avoid NSAID, follow biopsy Stop ferrous sulfate due to increased iron indices , repeat iron profile as an outpatient for follow up CT abdomen and pelvisnoted as above DVT prophylaxiswith SCD. GI prophylaxis on pantoprazole. Discharge Planning When cleared by GI Problem Qualifiers (1) GI bleed: Qualified Code: K92.2 - Gastrointestinal hemorrhage, unspecified gastrointestinal hemorrhage type Karley Merino MD Sep 29, 2016 11:12
[2016-09-29 17:44] LABS: HEMATOCRIT 21.2 % (39.0-51.0)
[2016-09-29 18:02] LABS: REVIEW FLAG FINAL
[2016-09-30] VITALS (15 sets, daily range): BP systolic 100–145; BP diastolic 56–75; PULSE 53–73; RESP 14–18; TEMP 96.3–97.6; O2SAT 95–97
[2016-09-30 00:44] LABS: REVIEW FLAG FINAL
[2016-09-30 00:47] LABS: HEMATOCRIT 20.7 % (39.0-51.0)
[2016-09-30] MEDS: SODIUM CHLOR 0.9% 1000 ML INJ 1,000 ML IV SCH ×2 (05:03→15:45)
[2016-09-30] MEDS: LEVOTHYROXINE SODIUM 150 MCG TAB PO SCH (05:48)
[2016-09-30] MEDS: SODIUM CHLORIDE 0.9% FLUSH 5 ML FLUSH FLUSH SCH ×2 (08:53→20:49)
[2016-09-30] MEDS: ATENOLOL 50 MG TAB PO SCH ×2 (08:53→20:49)
[2016-09-30] MEDS: PRAVASTATIN SOD 40 MG TAB PO SCH (08:53)
[2016-09-30] MEDS: PANTOPRAZOLE SOD 40 MG DELAYED RELEASE TAB PO SCH (08:53)
--- NOTE | 2016-09-30 08:58 | HHI.GIFU ---
Subjective Remarks Resting in bed. No complaints. Hoping to be discharged today. No bleeding. ( Bryanna Chicas) Objective Vitals I&O Vital Signs Date Time Temp Pulse Resp B/P Pulse Ox O2 Delivery O2 Flow Rate FiO2 09/30/16 08:39 97.0 55 18 127/69 95 09/30/16 06:03 54 09/30/16 04:28 96.9 58 14 126/70 96 09/30/16 04:10 97.3 59 15 130/71 96 09/30/16 04:00 97.5 53 18 135/70 96 09/30/16 02:25 59 145/75 96 09/30/16 02:10 58 129/68 95 09/30/16 01:52 96.3 61 15 130/70 97 09/30/16 01:34 97.5 63 15 122/65 95 09/30/16 00:00 97.4 73 18 103/59 97 09/29/16 22:15 68 09/29/16 21:43 66 113/58 09/29/16 20:00 97.6 67 18 100/56 97 09/29/16 16:00 96.1 61 18 103/61 99 09/29/16 12:00 96.3 60 16 114/64 99 09/29/16 09:33 57 I/O 09/29/16 09/29/16 09/29/16 09/30/16 09/30/16 09/30/16 07:00 15:00 23:00 07:00 15:00 23:00 Intake Total 700 ml 720 ml 1448 ml 2020 ml Output Total 650 ml Balance 50 ml 720 ml 1448 ml 2020 ml Intake Oral 720 ml 480 ml 120 ml IV Total 700 ml 968 ml 1900 ml Output Urine Total 650 ml # Voids 4 3 4 # Bowel Movements 0 Laboratory Laboratory Tests Test 09/29/16 09/29/16 17:21 23:35 Hemoglobin 7.2 6.9 Hematocrit 21.2 20.7 Date/Time Procedure Status Source Growth 09/27/16 21:23 Influenza Types A,B Antigen (GREGORY) - Final Complete Nasal Washing NEGATIVE FOR FLU A AND B ANTIGEN.... Imaging Last Impressions Abdomen/Pelvis CT 09/27/16 9871 Signed Impressions: Service Date/Time: Tuesday, September 27, 2016 23:39 - CONCLUSION: 1. Severe sigmoid colon diverticulosis without diverticulitis. 2. Severe atherosclerotic plaque of the aorta and branch vessels and also the iliac and visualized femoral vessels. Previous aortobifem bypass. 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 Please see above. 3. Left renal cysts and a 2 mm nonobstructing stone of the lower pole. Prominent left extrarenal pelvis. 4. Small intrahepatic biliary gas, nonspecific but presumably related to prior sphincterotomy. Patient has had cholecystectomy. Venu Motta MD Chest X-Ray 09/27/162100 Signed Impressions: Service Date/Time: Tuesday, September 27, 2016 21:20 - CONCLUSION: 1. No acute findings. Mildly tortuous aorta. Bhavin Castaneda MD Physical Exam HEENT: Normocephalic; atraumatic; no jaundice. Throat is clear. NECK: Neck is supple, no JVD, no lymphadenopathy. CHEST: CTA CARDIAC: Irregular ABDOMEN: Soft, nondistended, nontender; no hepatosplenomegaly; bowel sounds are present in all four quadrants. EXTREMITIES: No clubbing, cyanosis, or edema. SKIN: Normal; no rash; no jaundice. CHANGE COORDINATOR: No focal deficits; alert and oriented times three. (Bryanna ChicasP) Assessment and Plan Plan ASSESSMENT: - Upper GIB, Melena. Pt reports darker than normal stools x 6-7 months with sudden dizziness/fatigue 2 days ago. Getting transfused. No hx of PUD. Colonoscopy 2 years ago. ERCP with stent removal in June- Pt visiting from [place], [place]. S/P EGD (09/29/16)----> irregular z line, gastritis, erosive duodenitis. Pathology duodenal mucosal with promient brunners gland and focal foveolar metaplasia, mild chronic gastritis, negative for helicobacter pylori, hyperplastic squamous mucosa and gastric mucosa with mild chronic inflammation, negative for intestinal metaplsia or malignancy. PPI. - Anemia, acute blood loss. HH 6.9/20.7 last night, got 2 unit overnight. S/ P 5 units of PRBC. Abdomen/Pelvis CT (09/27/16)---> 1. Severe sigmoid colon diverticulosis without diverticulitis. 2. Severe atherosclerotic plaque of the aorta and branch vessels and also the iliac and visualized femoral vessels. Previous aortobifem bypass. 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 Please see above. 3. Left renal cysts and a 2 mm nonobstructing stone of the lower pole. Prominent left extrarenal pelvis. 4. Small intrahepatic biliary gas, nonspecific but presumably related to prior sphincterotomy. Patient has had cholecystectomy. - SHIMA, Creat. 1.63. IVF - Atrial fibrillation (on asa), hypothyroidism, hyperlipidemia, per primary PLAN: - BA - S/P 2 units of prbc last night - CBC this am - Cont. Protonix - Monitor HH - Transfuse as necessary - Supportive care - Further recommendations to follow based on results of above - Pt seen and examined by Dr. Carlson and myself and this note is written on his behalf (Bryanna Chicas) Physician Comments Patient seen and examined Agree with above Continue with current supportive care Monitor labs (Lenin Carlson MD) Bryanna Chicas Sep 30, 2016 08:57 Lenin Carlson MD Sep 30, 2016 21:22
[2016-09-30 09:42] LABS: HEMATOCRIT 29.8 % (39.0-51.0)
[2016-09-30 09:48] LABS: REVIEW FLAG FINAL
[2016-09-30 10:22] LABS: POTASSIUM 3.6 MEQ/L (3.5-5.1)
--- NOTE | 2016-09-30 14:28 | HHI.PR ---
Subjective Remarks Patient doing well this morning sitting on the edge of the bed His hemoglobin went down to 6.9 yesterday, he is status post 2 units transfusion hemoglobin is at 10 today GI is following Objective Vitals Vital Signs Date Time Temp Pulse Resp B/P Pulse Ox O2 Delivery O2 Flow Rate FiO2 09/30/16 12:00 97.3 62 18 132/71 96 09/30/16 09:59 62 09/30/16 08:39 97.0 55 18 127/69 95 09/30/16 06:03 54 09/30/16 04:28 96.9 58 14 126/70 96 09/30/16 04:10 97.3 59 15 130/71 96 09/30/16 04:00 97.5 53 18 135/70 96 09/30/16 02:25 59 145/75 96 09/30/16 02:10 58 129/68 95 09/30/16 01:52 96.3 61 15 130/70 97 09/30/16 01:34 97.5 63 15 122/65 95 09/30/16 00:00 97.4 73 18 103/59 97 09/29/16 22:15 68 09/29/16 21:43 66 113/58 09/29/16 20:00 97.6 67 18 100/56 97 09/29/16 16:00 96.1 61 18 103/61 99 I/O 09/29/16 09/29/16 09/29/16 09/30/16 09/30/16 09/30/16 07:00 15:00 23:00 07:00 15:00 23:00 Intake Total 700 ml 720 ml 1448 ml 2020 ml Output Total 650 ml Balance 50 ml 720 ml 1448 ml 2020 ml Intake Oral 720 ml 480 ml 120 ml IV Total 700 ml 968 ml 1900 ml Output Urine Total 650 ml # Voids 4 3 4 # Bowel Movements 0 Result Diagram: 09/30/16 0907 09/30/1607 Objective Remarks GENERAL: This is a well-nourished, well-developed patient, in no apparent distress. SKIN: No rashes, warm and dry HEAD: Atraumatic. Normocephalic. EYES: Pupils equal round and reactive. Extraocular motions intact. No scleral icterus. ENT: Nose without bleeding, or drainage, Airway patent. NECK: Trachea midline. Supple CARDIOVASCULAR: Regular rate and rhythm without murmurs, gallops, or rubs. RESPIRATORY: Fair air entry bilaterally. No wheezes, rales, or rhonchi. GASTROINTESTINAL: Abdomen soft, non-tender, nondistended. Positive bowel sounds MUSCULOSKELETAL: Extremities without clubbing, cyanosis, or edema. Pedal pulses appreciated NEUROLOGICAL: Awake and alert. Moves all extremity. Normal speech.no focal neurological deficit Procedures EGD A/P Problem List: (1) GI bleed ICD Code: K92.2 Status: Acute (2) Severe anemia ICD Code: D64.9 Status: Acute (3) Acute renal insufficiency ICD Code: N28.9 Status: Acute Assessment and Plan Upper GI bleeds Symptomatic anemia with near syncope Acute blood loss anemia History of A. fib on aspirin Increased iron indices >> stop ferrous sulfate Hyperlipidemia Hypothyroidism DVT prophylaxis with SCD only due to GI bleed Plan: IV hydration. Status post Transfuse 2 units of PRBC. 09/29/16 for hemoglobin of 6.9, this a.m. at 10 Hold blood thinners, resume when okay with GI. Protonix by mouth per GI GI consult appreciated status post EGD >> Irregular Z line, Gastritis, Erosive duodenitis Continue PPI, avoid NSAID, follow biopsy Stop ferrous sulfate due to increased iron indices , repeat iron profile as an outpatient for follow up CT abdomen and pelvisnoted as above DVT prophylaxiswith SCD. GI prophylaxis on pantoprazole. Discharge Planning When cleared by GI Problem Qualifiers (1) GI bleed: Qualified Code: K92.2 - Gastrointestinal hemorrhage, unspecified gastrointestinal hemorrhage type Karley Merino MD Sep 30, 2016 14:28
[2016-09-30 17:14] LABS: HEMATOCRIT 25.8 % (39.0-51.0)
[2016-09-30 17:18] LABS: REVIEW FLAG FINAL
[2016-10-01] VITALS: BP 122/63; PULSE 62; RESP 18; TEMP 97.4; O2SAT 97
[2016-10-01 01:24] LABS: HEMATOCRIT 24.5 % (39.0-51.0)
[2016-10-01 01:25] LABS: REVIEW FLAG FINAL
[2016-10-01] MEDS: SODIUM CHLOR 0.9% 1000 ML INJ 1,000 ML IV SCH ×2 (01:36→11:45)
[2016-10-01 04:00] VITALS: BP 126/73; PULSE 56; RESP 18; TEMP 96.4; O2SAT 96
[2016-10-01] MEDS: LEVOTHYROXINE SODIUM 150 MCG TAB PO SCH (05:42)
--- NOTE | 2016-10-01 07:15 | EKG ---
Date Performed: 09/28/2016 Time Performed: 13:36:25 PTAGE: 71 years EKG: Sinus rhythm WITH FIRST DEGREE AV BLOCK ABNORMAL ECG NO PREVIOUS TRACING DOCTOR: Donta Rogers Interpretating Date/Time 10/01/2016 07:13:18
[2016-10-01 07:35] VITALS: BP 148/85; PULSE 60; RESP 19; TEMP 97.1; O2SAT 98
[2016-10-01 08:36] LABS: HEMATOCRIT 26.3 % (39.0-51.0)
[2016-10-01 08:39] LABS: REVIEW FLAG FINAL
[2016-10-01] MEDS: SODIUM CHLORIDE 0.9% FLUSH 5 ML FLUSH FLUSH SCH (09:00)
[2016-10-01] MEDS: PRAVASTATIN SOD 40 MG TAB PO SCH (09:16)
[2016-10-01] MEDS: ATENOLOL 50 MG TAB PO SCH (09:16)
[2016-10-01] MEDS: PANTOPRAZOLE SOD 40 MG DELAYED RELEASE TAB PO SCH (09:16)
[2016-10-01 11:15] VITALS: BP 115/65; PULSE 63; RESP 19; TEMP 97.2; O2SAT 99
[2016-10-01 11:35] VITALS: PULSE 67
--- NOTE | 2016-10-01 13:38 | HHI.GIFU ---
Subjective Remarks Resting in bed. Tolerating diet. No active bleeding. No nausea or vomiting or abdominal pain (ChicasBryanna) Objective Vitals I&O Vital Signs Date Time Temp Pulse Resp B/P Pulse Ox O2 Delivery O2 Flow Rate FiO2 10/01/16 11:35 67 10/01/16 11:15 97.2 63 19 115/65 99 10/01/16 07:35 97.1 60 19 148/85 98 10/01/16 04:00 96.4 56 18 126/73 96 10/01/16 00:00 97.4 62 18 122/63 97 09/30/16 22:16 62 09/30/16 20:00 97.5 67 18 125/63 97 09/30/16 16:12 97.5 61 18 131/66 96 I/O 09/30/16 09/30/16 09/30/16 10/01/16 10/01/16 10/01/16 07:00 15:00 23:00 07:00 15:00 23:00 Intake Total 2020 ml 845 ml 480 ml 120 ml 1200 ml Balance 2020 ml 845 ml 480 ml 120 ml 1200 ml Intake Oral 120 ml 480 ml 480 ml 120 ml IV Total 1900 ml 365 ml 1200 ml # Voids 4 3 3 3 Laboratory Laboratory Tests Test 09/30/16 10/01/16 10/01/16 16:29 00:48 08:14 Hemoglobin 8.7 8.3 8.9 Hematocrit 25.8 24.5 26.3 Haptoglobin 120 Lactate Dehydrogenase 144 Date/Time Procedure Status Source Growth 09/27/16 21:23 Influenza Types A,B Antigen (GREGORY) - Final Complete Nasal Washing NEGATIVE FOR FLU A AND B ANTIGEN.... Imaging Last Impressions Abdomen/Pelvis CT 09/27/16 8420 Signed Impressions: Service Date/Time: Tuesday, September 27, 2016 23:39 - CONCLUSION: 1. Severe sigmoid colon diverticulosis without diverticulitis. 2. Severe atherosclerotic plaque of the aorta and branch vessels and also the iliac and visualized femoral vessels. Previous aortobifem bypass. 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 Please see above. 3. Left renal cysts and a 2 mm nonobstructing stone of the lower pole. Prominent left extrarenal pelvis. 4. Small intrahepatic biliary gas, nonspecific but presumably related to prior sphincterotomy. Patient has had cholecystectomy. Venu Motta MD Chest X-Ray 09/27/162100 Signed Impressions: Service Date/Time: Tuesday, September 27, 2016 21:20 - CONCLUSION: 1. No acute findings. Mildly tortuous aorta. Bhavin Castaneda MD Physical Exam HEENT: Normocephalic; atraumatic; no jaundice. Throat is clear. NECK: Neck is supple, no JVD, no lymphadenopathy. CHEST: CTA CARDIAC: Irregular ABDOMEN: Soft, nondistended, nontender; no hepatosplenomegaly; bowel sounds are present in all four quadrants. EXTREMITIES: No clubbing, cyanosis, or edema. SKIN: Normal; no rash; no jaundice. 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 (Bryanna Chicas) Assessment and Plan Plan ASSESSMENT: - Upper GIB, Melena. Pt reports darker than normal stools x 6-7 months with sudden dizziness/fatigue 2 days ago. Getting transfused. No hx of PUD. Colonoscopy 2 years ago. ERCP with stent removal in June- Pt visiting from [place], [place]. S/P EGD (09/29/16)----> irregular z line, gastritis, erosive duodenitis. Pathology duodenal mucosal with promient brunners gland and focal foveolar metaplasia, mild chronic gastritis, negative for helicobacter pylori, hyperplastic squamous mucosa and gastric mucosa with mild chronic inflammation, negative for intestinal metaplsia or malignancy. HH stable 8.9/26.3. No active bleeding. PPI. - Anemia, acute blood loss. S/P 5 units of PRBC. Abdomen/Pelvis CT (09/27/16)- --> 1. Severe sigmoid colon diverticulosis without diverticulitis. 2. Severe atherosclerotic plaque of the aorta and branch vessels and also the iliac and visualized femoral vessels. Previous aortobifem bypass. 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 Please see above. 3. Left renal cysts and a 2 mm nonobstructing stone of the lower pole. Prominent left extrarenal pelvis. 4. Small intrahepatic biliary gas, nonspecific but presumably related to prior sphincterotomy. Patient has had cholecystectomy. HH stable 8.9/26.3. - SHIMA, Creat. IVF - Atrial fibrillation (on asa), hypothyroidism, hyperlipidemia, per primary PLAN: - Okay to d/c home from GI standpoint - FU RUFUS in [place] ([place]) - Monitor labs - Cont. Protonix - Consider capsule endoscopy as outpatient - Pt seen and examined by Dr. Carlson and myself and this note is written on his behalf (Bryanna Chicas) Physician Comments Patient seen and examined Agree with above Continue with current supportive care Monitor labs Okay for discharge from a GI standpoint (Lenin Carlson MD) Bryanna Chicas Oct 01, 2016 13:38 Lenin Carlson MD Oct 01, 2016 17:40
--- NOTE | 2016-10-01 13:52 | EKG ---
Date Performed: 09/30/2016 Time Performed: 13:25:08 PTAGE: 71 years EKG: SINUS BRADYCARDIA WITH FIRST DEGREE AV BLOCK ABNORMAL ECG PREVIOUS TRACING : 09/28/2016 13.36 Since previous tracing, no significant change noted DOCTOR: Jes Vuong Interpretating Date/Time 10/01/2016 13:45:46
[2016-10-01] MEDS ORDERED: ATEN50TA PO (14:28)
[2016-10-01] MEDS ORDERED: PANT40TA3 PO (14:28)
--- NOTE | 2016-10-01 14:33 | HHI.DS ---
Discharge Summary Admission Date Sep 27, 2016 at 22:45 Discharge Date: Oct 01, 2016 Admitting Diagnosis GI bleed, severe anemia, acute renal insufficiency (1) GI bleed ICD Code: K92.2 (2) Severe anemia ICD Code: D64.9 (3) Acute renal insufficiency ICD Code: N28.9 Procedures EGD Brief History - From Admission History from patient, ER physician communication, and review of medical records. Patient reported that he was just extremely dizzy at home and was having trouble walking going to the bathroom. Stated his had to help him. He reports that he finally lost balance and fell down today. However denies hitting his head. Denies loss of consciousness. His only complaint is that of dizziness. Patient and was at the bedside stated that this has been going on for about 2 days. Also reports of black color stools. Denies any vomiting blood. Denies any blood in his urine. Patient denies any chest pain/palpitations/shortness of breath. He did however later stated that he thinks his A. fib was acting up and he felt some symptoms. He denies any nausea/vomiting/diarrhea/urinary burning or pain on urination. Denies any focal weakness. In the emergency room, patient's workup revealed critical anemia. CBC/BMP: 10/01/16 0814 09/30/16 0907 Significant Findings Laboratory Tests Test 09/28/16 09/28/16 09/29/16 09/29/16 18:10 23:54 07:54 17:21 Hemoglobin 8.1 GM/DL 7.5 GM/DL 7.8 GM/DL 7.2 GM/DL (13.0-17.0) (13.0-17.0) (13.0-17.0) (13.0-17.0) Hematocrit 23.9 % 21.8 % 23.0 % 21.2 % (39.0-51.0) (39.0-51.0) (39.0-51.0) (39.0-51.0) Red Blood Count 2.58 MIL/MM3 (4.50-5.90) Platelet Count 90 TH/MM3 (150-450) Neutrophils (%) (Auto) 71.7 % (16.0-70.0) Monocytes (%) (Auto) 9.3 % (0.0-8.0) Platelet Estimate LOW (NORMAL) Basophilic Stippling FAINT (NORMAL) Chloride Level 111 MEQ/L (98-107) Blood Urea Nitrogen 70 MG/DL (7-18) Creatinine 1.63 MG/DL (0.60-1.30) Estimat Glomerular Filtration 42 ML/MIN (>89) Rate Calcium Level 7.9 MG/DL (8.5-10.1) Aspartate Amino Transf 11 U/L (15-37) (AST/SGOT) Alkaline Phosphatase 28 U/L (45-117) Total Protein 4.9 GM/DL (6.4-8.2) Albumin 2.8 GM/DL (3.4-5.0) Test 09/29/16 09/30/16 09/30/16 10/01/16 23:35 09:07 16:29 00:48 Hemoglobin 6.9 GM/DL 10.3 GM/DL 8.7 GM/DL 8.3 GM/DL (13.0-17.0) (13.0-17.0) (13.0-17.0) (13.0-17.0) Hematocrit 20.7 % 29.8 % 25.8 % 24.5 % (39.0-51.0) (39.0-51.0) (39.0-51.0) (39.0-51.0) Chloride Level 110 MEQ/L (98-107) Blood Urea Nitrogen 46 MG/DL (7-18) Creatinine 1.49 MG/DL (0.60-1.30) Estimat Glomerular Filtration 47 ML/MIN (>89) Rate Calcium Level 7.7 MG/DL (8.5-10.1) Test 10/01/16 08:14 Hemoglobin 8.9 GM/DL (13.0-17.0) Hematocrit 26.3 % (39.0-51.0) PE at Discharge GENERAL: This is a well-nourished, well-developed patient, in no apparent distress. SKIN: No rashes, warm and dry HEAD: Atraumatic. Normocephalic. EYES: Pupils equal round and reactive. Extraocular motions intact. No scleral icterus. ENT: Nose without bleeding, or drainage, Airway patent. NECK: Trachea midline. Supple CARDIOVASCULAR: Regular rate and rhythm without murmurs, gallops, or rubs. RESPIRATORY: Fair air entry bilaterally. No wheezes, rales, or rhonchi. GASTROINTESTINAL: Abdomen soft, non-tender, nondistended. Positive bowel sounds MUSCULOSKELETAL: Extremities without clubbing, cyanosis, or edema. Pedal pulses appreciated NEUROLOGICAL: Awake and alert. Moves all extremity. Normal speech.no focal neurological deficit Hospital Course 71 years old male admitted for Upper GI bleeds,Symptomatic anemia with near syncope,Acute blood loss anemiaHistory of A. fib on aspirin,Increased iron indices >> stop ferrous sulfateHyperlipidemia,Hypothyroidism,DVT prophylaxis with SCD only due to GI bleed Patient admitted for IV hydration., GI consultation, he had an EGD >> Irregular Z line, Gastritis, Erosive duodenitis Hemoglobin continues to drop, Status post Transfuse 2 units of PRBC. 09/29/16 for hemoglobin of 6.9, this a.m. at 10 Hold blood thinners, resume when okay with GI., Patient cleared by GI to be discharged and follow up with [facility] as an outpatien Continue PPI, avoid NSAID, follow biopsy Stop ferrous sulfate due to increased iron indices , repeat iron profile as an outpatient for follow up CT abdomen and pelvisnoted as above, DVT prophylaxiswith SCD. [id number] encounter performed with the patient on discharge day, as well as physical exam, summary of hospitalization course and postdischarge plan has been D/W the patient. D/W nurse Discharge medications reviewed and printed and signed, post discharge follow up visit with PCP and other specialist as well as Brief hospital course and discharge summary has been placed. Pt Condition on Discharge: Good Discharge Disposition: Discharge Home Discharge Time: > 30 minutes Discharge Instructions DIET: Follow Instructions for: Heart Healthy Diet Activities you can perform: Weight Bearing as Param New Medications: Atenolol (Atenolol) 50 Mg Tab 50 MG PO Q12HR HTN Days 30 TAB Pantoprazole (Pantoprazole) 40 Mg Tab 40 MG PO DAILY gastritis Days 30 TAB Continued Medications: Aspirin (Aspirin) 81 Mg Chew 81 MG CHEW DAILY Ref 0 TAB B-Complex Vitamins (B Complex) 1 Cap 1 CAP PO DAILY Nutritional Supplement #30 Ref 0 CAP Cholecalciferol (Vitamin D) 400 Unit Cap Hydralazine (Hydralazine) 10 Mg Tab 12.5 MG PO DAILY Take with a meal Blood Pressure Management Ref 0 TAB Levothyroxine (Levothyroxine) 150 Mcg Tab 150 MCG PO DAILY Thyroid #30 Ref 0 TAB Magnesium (Magnesium) 100 Mg Cap Oyster Shell (Calcium) 500 Mg Tab 500 Pravastatin (Pravastatin) 40 Mg Tab 40 MG PO DAILY Cholesterol Management #30 Ref 0 TAB Karley Merino MD Oct 01, 2016 14:33
[2016-10-01] MEDS ORDERED: DOCUSATE SODIUM 50 MG/SENNA 8.6 MG TAB PO PRN (15:00)
[2016-10-01] MEDS ORDERED: BISACODYL 10 MG SUPP PR PRN (15:00)
[2016-10-01 15:30] VITALS: BP 142/60; PULSE 59; RESP 19; TEMP 97.2; O2SAT 100
[2016-10-01] MEDS ORDERED: MAGNESIUM HYDROXIDE SUSP 30 ML CUP PO PRN (16:00)
== END 2016-10-01 16:51 | disposition home or self-care (01) | DRG 378 ==
LOC: NEPE 20:06 → NEDA 22:45 → N05B 09-28 01:35
PROVIDERS: ADMIT Hospitalist; ATTEND Hospitalist
PROC: 0DB98ZX Excision of Duodenum, Via Natural or Artificial Opening Endoscopic, Diagnostic (ICD-10-PCS; 2016-09-28)
PROC: 0DB68ZX Excision of Stomach, Via Natural or Artificial Opening Endoscopic, Diagnostic (ICD-10-PCS; 2016-09-28)
PROC: 0DB48ZX Excision of Esophagogastric Junction, Via Natural or Artificial Opening Endoscopic, Diagnostic (ICD-10-PCS; 2016-09-28)
PROC: 30233N1 Transfusion of Nonautologous Red Blood Cells into Peripheral Vein, Percutaneous Approach (ICD-10-PCS; principal; 2016-09-28 14:35)
DX: K92.2 Gastrointestinal hemorrhage, unspecified (principal); K55.1 Chronic vascular disorders of intestine; N17.9 Acute kidney failure, unspecified; I48.91 Unspecified atrial fibrillation; J44.9 Chronic obstructive pulmonary disease, unspecified; N20.0 Calculus of kidney; I10 Essential (primary) hypertension; R55 Syncope and collapse; D62 Acute posthemorrhagic anemia; K57.30 Diverticulosis of large intestine without perforation or abscess without bleeding; I70.0 Atherosclerosis of aorta; N28.1 Cyst of kidney, acquired; I70.203 Unspecified atherosclerosis of native arteries of extremities, bilateral legs; I70.8 Atherosclerosis of other arteries; E03.9 Hypothyroidism, unspecified; E78.5 Hyperlipidemia, unspecified; K29.80 Duodenitis without bleeding; K29.50 Unspecified chronic gastritis without bleeding; Z87.442 Personal history of urinary calculi; Z86.79 Personal history of other diseases of the circulatory system; Z79.82 Long term (current) use of aspirin
CPT/HCPCS: 36430; 71010; 74176; 80048; 80053; 81001; 82550; 82728; 83010; 83540; 83550; 83615; 83735; 84484; 85014; 85018; 85025; 85060; 85610; 85730; 86850; 86900; 86901; 86920; 87804; 88305; 88312; 93005; 96361; 96374; C9113; J7030; P9016